=== PATIENT | male | born 1995 | race Two or more races ===

== ENCOUNTER 2019-03-22 15:25 | Emergency (ER) | payer OTHER ==
[~2019-03-22] VITALS: Ht 175.3 cm; Wt 104.0 kg
[2019-03-22 16:03] VITALS: BP 108/66
--- NOTE | 2019-03-22 17:29 | NUR ---
pt given dc instructions and script, educated regarding rx for tessalon and albuterol. pt a&o, resps even and unlabored, nadn at dc. pt amb to dc desk with steady gait.
== END 2019-03-22 17:29 | disposition home or self-care (01) ==
LOC: ED 17:05
DX: J06.9 Acute upper respiratory infection, unspecified (principal)
CPT/HCPCS: 71046; 99283

== ENCOUNTER 2019-06-12 07:37 | Outpatient (CLI) | payer OTHER | END 2019-06-12 23:59 | disposition home or self-care (01) | LOC: CFH 07:37 | PROVIDERS: ATTEND Internal Medicine Cardiovascular Disease | DX: I10 Essential (primary) hypertension (principal) | CPT/HCPCS: 0399T; 93306 ==